=== PATIENT | male | born 1940 | race Hispanic/Latino ===

== ENCOUNTER → 2019-09-17 | Outpatient (CLI) | payer OTHER, MEDICARE ==
[~2019-09-17] MED LIST: AEC81 PO; AMLO10TA7 PO; CEFU500T67 PO; CLOP75TA32 PO; FERR325T22 PO; FISH1CAP49 PO; FOLI0.8T22 PO; HYDR-3420 PO; LEVO25TA54 PO; LOSA100T58 PO; MECL-160 PO; MULT-1192 PO; ONDA8TAB8 PO; PRAV40TA3 PO; REGADENOSON 0.4 MG/5 ML PF SYG IVP SCH; SODI650T PO; TAMS0.4C32 PO
== END | disposition home or self-care (01) ==
LOC: SHCH 08:42
PROVIDERS: ATTEND Internal Medicine Cardiovascular Disease
DX: I10 Essential (primary) hypertension (principal); I25.810 Atherosclerosis of coronary artery bypass graft(s) without angina pectoris
CPT/HCPCS: 78452; 93017; 96374; A9500 ×2; J2785